=== PATIENT | male | born 1985 | race Caucasian/White ===

== ENCOUNTER → 2017-02-05 | Emergency (ER) | payer BC, OTHER ==
[~2017-02-05] VITALS: Ht 180.3 cm; Wt 99.8 kg
[~2017-02-05] MED LIST: CYCL10TA9 PO; HYDROcodone/APAP 5 MG/325 MG (LORTAB) TAB PO STA; ORPHENADRINE 60 MG/2 ML (NORFLEX) AMP IM STA; PRD20T PO; TRAM50TA2 PO; morphine INJ 10 MG/ML 1ML (SYR OR VIAL) IM STA
--- NOTE | 2017-02-05 16:11 | ED Back Pain ---
General Chief Complaint: Back Problems Stated Complaint: BACK PAIN Nursing Triage Note: PT STATES HE HAS HAD CHRONIC BACK PAIN SINCE HE WAS IN HIGH. STATES THIS AM HE WOKE UP AND IT WAS SEVERE. TOOK 800MG IBUPROFEN AT 0730, STATES IT USUALLY HELPS HIS PAIN BUT IT DID NOT TODAY AND HE DOES NOT TAKE ANYTHING OTHER THAN THAT. Nursing Sepsis Screen: No Definite Risk Source of Information: Patient, Spouse, Other (friend) Exam Limitations: No Limitations History of Present Illness Time Seen by Provider: 16:11 Initial Comments 31-year-old male patient presents to the emergency department complaints of mid to low back pain which is chronic in nature. States this has occurred since he was in [place]. Denies any known previous injury. Reports this a.m. he awoke with increased pain. States he had gotten in the shower to stretch out his back. When he got out to dry off he had severe sudden onset pain. Denies numbness, weakness, bowel incontinence, bladder incontinence, or numbness of the genitals. Take 800 mg ibuprofen at 1500. Location: Lumbar Spine, Paraspinous Muscles Timing/Duration: Other (chronic back pain, worse today) Severity: Severe Pain/Injury Location: Back Radiation: Other (denies radiation) Method of Injury: Unknown Modifying Factors: Improves With Immobilization, Worse With Movement Associated Symptoms: muscle spasms, No fever, No weakness, No numbness in legs/ feet, No tingling in legs/feet, No sensory/motor loss, No loss of bladder control, No loss of bowel control Allergies and Home Medications Allergies Coded Allergies: erythromycin base (Verified Allergy, Unknown, 02/05/17) Home Medications Cyclobenzaprine HCl 10 Mg Tablet, 10 MG PO Q8H PRN for SPASMS, #14 Ref 0 Prescribed by: GRAZYNA OKEEFE on 02/05/17 172 Prednisone 20 Mg Tab, 40 MG PO DAILY for 5 Days, #10 Ref 0 Prescribed by: GRAZYNA OKEEFE on 02/05/17 172 Tramadol HCl 50 Mg Tablet, 50 MG PO Q4H PRN for PAIN, #14 Ref 0 Prescribed by: GRAZYNA OKEEFE on 02/05/171722 Constitutional: No chills, No fever, No malaise Respiratory: no symptoms reported Cardiovascular: no symptoms reported Gastrointestinal: No abdominal pain, No constipation, No diarrhea, No nausea, No vomiting Genitourinary: No decreased output, No dysuria, No frequency, No hematuria, No pain Musculoskeletal: see HPI, back pain, No joint pain, No neck pain Skin: no symptoms reported Psychiatric/Neurological: Denies Headache, Denies Numbness, Denies Paresthesia , Denies Tingling, Denies Weakness All Other Systems Reviewed Negative Unless Noted: Yes (Negative excepted noted.) Past Drhkdwd-Bwgyau-Gvxhtb Hx Patient Social History Alcohol Use: Denies Use Recreational Drug Use: No Smoking Status: Never a Smoker Recent Foreign Travel: No Contact w/Someone Who Travel: No Recent Infectious Disease Expo: No Recent Hopitalizations: No Seasonal Allergies Seasonal Allergies: No Surgeries HX Surgeries: Yes Surgeries: Appendectomy, Gallbladder Respiratory Hx Respiratory Disorders: No Cardiovascular Hx Cardiac Disorders: No Neurological Hx Neurological Disorders: No Reproductive System Hx Reproductive Disorders: No Genitourinary Hx Genitourinary Disorders: No Gastrointestinal Hx Gastrointestinal Disorders: Yes Gastrointestinal Disorders: Gastroesophageal Reflux Musculoskeletal Hx Musculoskeletal Disorders: Yes Musculoskeletal Disorders: Chronic Back Pain Endocrine Hx Endocrine Disorders: No HEENT HX ENT Disorders: No Cancer Hx Cancer: No Psychosocial Hx Psychiatric Problems: No Integumentary HX Skin/Integumentary Disorder: No Blood Transfusions Hx Blood Disorders: No Reviewed Nursing Assessment Reviewed/Agree w Nursing PMH: Yes Family Medical History Significant Family History: No Pertinent Family Hx Physical Exam Vital Signs Vital Sign - Last 12Hours 02/05/17 15:55 Temp 98.1 Pulse 51 Resp 18 B/P (MAP) 140/96 Capillary Refill : Less Than 3 Seconds General Appearance: No Apparent Distress, WD/WN HEENT: PERRL/EOMI, Pharynx Normal Neck: Full Range of Motion, Normal Inspection, Non Tender, Supple Cardiovascular: Regular Rate, Rhythm, No Edema, No Murmur, Normal Peripheral Pulses Respiratory: Lungs Clear, Normal Breath Sounds, No Respiratory Distress Gastrointestinal: Normal Bowel Sounds, No Organomegaly, Non Tender, Soft, No Distended Back: Normal Inspection, Decreased Range of Motion, Muscle Spasm, Vertebral Tenderness (upper lumbar spine.) Extremity: Normal Capillary Refill, Normal Inspection, Non Tender, No Pedal Edema, Other (LLE) Neurologic/Psychiatric: Alert, Oriented x3, No Motor/Sensory Deficits, Normal Mood/Affect Skin: Normal Color, Warm/Dry Progress/Results/Core Measures Results/Orders My Orders Orders - GRAZYNA OKEEFE Lumbar Spine - 2-3 Views (02/05/17 16:21) Morphine Injection (Morphine Injection (02/05/17 16:21) Orphenadrine Injection (Norflex Injectio (02/05/17 16:21) Hydrocodone/Apap 5/325 Tablet (Lortab 5 (02/05/17 17:25) Vital Signs/I&O Vital Sign - Last 12Hours 02/05/17 15:55 Temp 98.1 Pulse 51 Resp 18 B/P (MAP) 140/96 Blood Pressure Mean: 111 Diagnostic Imaging Diagonstic Imaging: Xray Plain Films/CT/US/NM/MRI: other (lumbar spine) Comments FINDINGS: Alignment of lumbar spine appears normal. Vertebral body heights well- maintained. Disc spaces appear preserved. The facets appear normally aligned. There appear to be some mild facet hypertrophy at L4-L5 and L5-S1. IMPRESSION: 1. Mild lower lumbar facet hypertrophy. Alignment is normal. Vertebral body heights maintained. Disc spaces appear preserved. Dictated on workstation # [id number] Reviewed: Reviewed by Me (radiology report reviewed by me) Departure Communication Progress Notes Diagnostic findings discussed with the patient. Patient states pain is improved , but still rates pain at a 4/10. Requesting something else for pain. We'll give 1 dose of hydrocodone prior to discharge. Patient ambulated from the emergency department without difficulty. Impression Impression: Primary Impression: Back strain Qualified Codes: S39.012A - Strain of muscle, fascia and tendon of lower back , initial encounter Disposition: 01 HOME, SELF-CARE Condition: Improved Departure-Patient Inst. Decision time for Depature: 17:16 Referrals: NO,LOCAL PHYSICIAN (PCP) Primary Care Physician Patient Instructions: Muscle Strain (DC), Lumbar Muscle Strain (DC) Add. Discharge Instructions: All discharge instructions reviewed with patient and/or family. Voiced understanding. Medications as instructed. Ibuprofen 800 mg by mouth every 8 hours as needed for pain. Tylenol extra strength [id number] as directed for pain. Ice packs or heating pads as needed for pain. No lifting, pushing, pulling, twisting, bending, climbing 5-7 days, increase activity slowly as tolerated. Follow-up with your family practice provider of choice if no improvement in symptoms in 7-10 days. Return to the emergency department for worsened pain, numbness, weakness, and numbness of the genitalia, bowel incontinence, bladder incontinence, or any other concerns. Scripts Cyclobenzaprine HCl (Cyclobenzaprine HCl) 10 Mg Tablet 10 MG PO Q8H Y for SPASMS, #14 TAB 0 Refills Prov: GRAZYNA OKEEFE 02/05/17 Tramadol HCl (Tramadol HCl) 50 Mg Tablet 50 MG PO Q4H Y for PAIN, #14 TAB 0 Refills Prov: GRAZYNA OKEEFE 02/05/17 Prednisone (Prednisone) 20 Mg Tab 40 MG PO DAILY for 5 Days, #10 TAB 0 Refills Prov: GRAZYNA OKEEFE 02/05/17 Work/School Note: Local [employer] GRAZYNA OKEEFE Feb 05, 2017 16:11
--- NOTE | 2017-02-05 17:10 | Diagnostic Imaging Report ---
INDICATION: Back pain. FINDINGS: Alignment of lumbar spine appears normal. Vertebral body heights well-maintained. Disc spaces appear preserved. The facets appear normally aligned. There appear to be some mild facet hypertrophy at L4-L5 and L5-S1. IMPRESSION: 1. Mild lower lumbar facet hypertrophy. Alignment is normal. Vertebral body heights maintained. Disc spaces appear preserved. Dictated by: Dictated on workstation # [id number]
[2017-02-05 17:39] VITALS: BP 140/96
== END | disposition home or self-care (01) ==
LOC: ER 15:42
DX: S39.012A Strain of muscle, fascia and tendon of lower back, initial encounter (principal); X50.9XXA Other and unspecified overexertion or strenuous movements or postures, initial encounter; Y92.012 Bathroom of single-family (private) house as the place of occurrence of the external cause; Y93.E1 Activity, personal bathing and showering; Y99.8 Other external cause status
CPT/HCPCS: 72100; 96372; 99281

== ENCOUNTER 2018-04-14 16:41 | Emergency (ER) | payer SELFPAY ==
[~2018-04-14] VITALS: Ht 180.3 cm; Wt 97.5 kg
[~2018-04-14 16:41] MED LIST changes: -HYDROcodone/APAP 5 MG/325 MG (LORTAB) TAB PO STA; -ORPHENADRINE 60 MG/2 ML (NORFLEX) AMP IM STA; -morphine INJ 10 MG/ML 1ML (SYR OR VIAL) IM STA
--- NOTE | 2018-04-14 17:10 | ED Chest Pain ---
General Chief Complaint: Chest Pain Stated Complaint: CP/FACIAL TINGLING Source: patient, family Exam Limitations: no limitations History of Present Illness Date Seen by Provider: Apr 14, 2018 Time Seen by Provider: 17:05 Initial Comments to ER with reports of chest pain and facial tingling. This began when he was in the movie theater with his earlier today. His accompanies him to ER. He states that he began to feel weird during the movie then stood up and felt lightheaded, tingling in chest and abdomen, tingling in his face and fingertips and he began to feel very short of breath.he's had a couple of these episodes over the past few weeks with dizziness, states "I just can't think". His states that he referred to triangle as a [place] and seemed to have trouble getting his thoughts out. During these episodes he has the tingling in both hands and his chest. He was started on Concerta 3 months ago. Severity/Quality: moderate Location: central Activities at Onset: none Prior CP/Workup: no prior chest pain Associated Symptoms: denies symptoms Allergies and Home Medications Allergies Coded Allergies: erythromycin base (Verified Allergy, Unknown, 02/05/17) Home Medications Cyclobenzaprine HCl 10 Mg Tablet, 10 MG PO Q8H PRN for SPASMS Prescribed by: GRAZYNA OKEEFE on 02/05/17 172 Hydroxyzine HCl 25 Mg Tablet, 25 MG PO Q6H PRN for ANXIETY Prescribed by: SIENNA MAKI on 04/14/18 1740 Prednisone 20 Mg Tab, 40 MG PO DAILY Prescribed by: GRAZYNA OKEEFE on 02/05/17 172 Tramadol HCl 50 Mg Tablet, 50 MG PO Q4H PRN for PAIN Prescribed by: GRAZYNA OKEEFE on 02/05/17 172 Patient Home Medication List Home Medication List Reviewed: Yes Review of Systems Constitutional: see HPI EENTM: No Symptoms Reported Respiratory: See HPI; Denies Cough, Denies Orthopnea; Shortness of Air Cardiovascular: See HPI, Chest Pain Gastrointestinal: No Symptoms Reported Genitourinary: No Symptoms Reported Musculoskeletal: no symptoms reported Skin: no symptoms reported Psychiatric/Neurological: No Symptoms Reported Endocrine: No Symptoms Reported Past Elsvtpv-Hylpjr-Emynwc Hx Patient Social History Recent Hopitalizations: No Seasonal Allergies Seasonal Allergies: No Past Medical History Appendectomy, Gallbladder Reproductive Disorders: No Gastroesophageal Reflux Chronic Back Pain Family Medical History No Pertinent Family Hx Physical Exam Vital Signs Vital Signs - First Documented 04/14/18 17:14 Temp 98.2 Pulse 90 Resp 18 B/P (MAP) 146/92 (110) Pulse Ox 99 O2 Delivery Room Air Capillary Refill : General Appearance: No Apparent Distress, WD/WN, Anxious, Other (speech is appropriate, his responses to questions are appropriate, he is able to describe everything that happened but his responses are delayed and he does not make eye contact.) HEENT: PERRL/EOMI, TMs Normal Neck: Full Range of Motion, Normal Inspection Respiratory: Normal Breath Sounds, No Accessory Muscle Use, No Respiratory Distress Cardiovascular: Regular Rate, Rhythm, Normal Peripheral Pulses Gastrointestinal: Normal Bowel Sounds, Non Tender, Soft Extremity: Normal Capillary Refill, Normal Inspection Neurologic/Psychiatric: Alert, Oriented x3, No Motor/Sensory Deficits Skin: Normal Color, Warm/Dry Progress/Results/Core Measures Results/Orders Lab Results Laboratory Tests Test 04/14/18 17:00 Range/Units White Blood Count 9.0 4.3-11.0 10^3/uL Red Blood Count 4.81 4.35-5.85 10^6/uL Hemoglobin 14.3 13.3-17.7 G/DL Hematocrit 40 40-54 % Mean Corpuscular Volume 82 80-99 FL Mean Corpuscular Hemoglobin 30 25-34 PG Mean Corpuscular Hemoglobin Concent 36 32-36 G/DL Red Cell Distribution Width 12.7 10.0-14.5 % Platelet Count 309 130-400 10^3/uL Mean Platelet Volume 9.5 7.4-10.4 FL Neutrophils (%) (Auto) 65 42-75 % Lymphocytes (%) (Auto) 22 12-44 % Monocytes (%) (Auto) 10 0-12 % Eosinophils (%) (Auto) 2 0-10 % Basophils (%) (Auto) 0 0-10 % Neutrophils # (Auto) 5.9 1.8-7.8 X 10^3 Lymphocytes # (Auto) 2.0 1.0-4.0 X 10^3 Monocytes # (Auto) 0.9 0.0-1.0 X 10^3 Eosinophils # (Auto) 0.2 0.0-0.3 10^3/uL Basophils # (Auto) 0.0 0.0-0.1 10^3/uL Sodium Level 140 135-145 MMOL/L Potassium Level 3.5 L 3.6-5.0 MMOL/L Chloride Level 108 H 98-107 MMOL/L Carbon Dioxide Level 21 21-32 MMOL/L Anion Gap 11 5-14 MMOL/L Blood Urea Nitrogen 14 7-18 MG/DL Creatinine 0.88 0.60-1.30 MG/DL Estimat Glomerular Filtration Rate > 60 BUN/Creatinine Ratio 16 Glucose Level 121 H 70-105 MG/DL Calcium Level 9.6 8.5-10.1 MG/DL Total Bilirubin 0.6 0.1-1.0 MG/DL Aspartate Amino Transf (AST/SGOT) 19 5-34 U/L Alanine Aminotransferase (ALT/SGPT) 28 0-55 U/L Alkaline Phosphatase 74 40-136 U/L Troponin I < 0.30 <0.30 NG/ML Total Protein 7.2 6.4-8.2 GM/DL Albumin 4.4 3.2-4.5 GM/DL Thyroid Stimulating Hormone (TSH) 1.89 0.35-4.94 UIU/ML Free Thyroxine 1.09 0.70-1.48 NG/DL My Orders Orders - SIENNA MAKI APRN Alprazolam Tablet (Xanax Tablet) (04/14/18 17:15) Cbc With Automated Diff (04/14/18 17:04) Comprehensive Metabolic Panel (04/14/18 17:04) Thyroid Stimulating Hormone (04/14/18 17:04) Free T4 (Free Thyroxine) (04/14/18 17:04) Ekg Tracing (04/14/18 17:04) Chest Pa/Lat (2 View) (04/14/18 17:04) Ct Head Wo (04/14/18 17:04) Troponin I (04/14/18 17:13) Medications Given in ED Current Medications Medications Dose Ordered Sig/Terry Route Start Time Stop Time Status Last Admin Dose Admin Alprazolam 0.25 mg ONCE ONCE PO 04/14/18 17:15 18 17:16 DC 04/14/18 17:34 0.25 MG Vital Signs/I&O 04/14/1818 17:14 17:14 Temp 98.2 Pulse 90 Resp 18 B/P (MAP) 146/92 (110) Pulse Ox 99 O2 Delivery Room Air Progress Progress Note : Progress Note 1811-tingling is goneand he was feeling better but he feels a recurrence ofshortness of breath again.His keeps his eyes closed when talking. Diagnostic Imaging Diagonstic Imaging: CT Comments NAME: TUSHAR CLINE [facility] REC#: [id number] PT STATUS: REG ER : 1985 PHYSICIAN: SIENNA MAKI APRN ADMIT DATE: 04/14/18/ER Draft Date of Exam:04/14/18 CT HEAD WO PROCEDURE: CT head without contrast. TECHNIQUE: Multiple contiguous axial images were obtained through the brain without the use of intravenous contrast. INDICATION: Lightheadedness and dizziness. CT HEAD: Multiple contiguous axial CT images of the head were obtained. FINDINGS: Ventricles and sulci are within normal limits for size. There is no intracranial hemorrhage identified. There is no abnormal mass effect or shift of midline structures. IMPRESSION: Unremarkable CT of the head. Dictated on workstation # [id number] Dict: 04/14/18 1727 Trans: 04/14/18 1734 [id number] Interpreted by: OLINDA DURAN MD Electronically signed by: Departure Impression Primary Impression: Chest pain Additional Impression: Anxiety Disposition: 01 HOME, SELF-CARE Condition: Stable Departure-Patient Inst. Decision time for Depature: 17:38 Referrals: NO,LOCAL PHYSICIAN (PCP/Family) Primary Care Physician Patient Instructions: Chest Pain (DC) Add. Discharge Instructions: 1. Your symptoms do strongly suggest anxiety. He should follow-up with your primary care provider within one week for further evaluation of symptoms. You may also discussed with him stopping the Concerta and switching to a different stimulant medication, as it would be possible that this is contributing to the anxiety. All discharge instructions reviewed with patient and/or family. Voiced understanding. Scripts Hydroxyzine HCl (Hydroxyzine HCl) 25 Mg Tablet 25 MG PO Q6H PRN for ANXIETY, #20 TAB Prov: SIENNA MAKI APRN 04/14/18 SIENNA MAKI APRN Apr 14, 2018 17:10
[2018-04-14] MEDS ORDERED: ALPRAZolam 0.25 MG (XANAX) TAB PO ONE (17:15)
[2018-04-14 17:16] LABS: BASOPHILS % (AUTO) 0 % (0-10); EOSINOPHILS # (AUTO) 0.2 10^3/uL (0.0-0.3); EOSINOPHILS % (AUTO) 2 % (0-10); HEMATOCRIT 40 % (40-54); HEMOGLOBIN 14.3 G/DL (13.3-17.7); LYMPHOCYTES % (AUTO) 22 % (12-44); MEAN CORPUSCULAR HEMOGLOBIN 30 PG (25-34); MEAN CORPUSCULAR HGB CONC 36 G/DL (32-36); MEAN CORPUSCULAR VOLUME 82 FL (80-99); MEAN PLATELET VOLUME 9.5 FL (7.4-10.4); MONOCYTES # (AUTO) 0.9 X 10^3 (0.0-1.0); MONOCYTES % (AUTO) 10 % (0-12); NEUTROPHILS # (AUTO) 5.9 X 10^3 (1.8-7.8); NEUTROPHILS % (AUTO) 65 % (42-75); PLATELET COUNT 309 10^3/uL (130-400); RED BLOOD COUNT 4.81 10^6/uL (4.35-5.85); RED CELL DISTRIBUTION WIDTH 12.7 % (10.0-14.5)
[2018-04-14 17:33] LABS: ALANINE AMINOTRANSFERASE 28 U/L (0-55); ALBUMIN 4.4 GM/DL (3.2-4.5); ALKALINE PHOSPHATASE 74 U/L (40-136); BILIRUBIN,TOTAL 0.6 MG/DL (0.1-1.0); BUN/CREATININE RATIO 16; CALCIUM 9.6 MG/DL (8.5-10.1); CARBON DIOXIDE 21 MMOL/L (21-32); CHLORIDE 108 MMOL/L (98-107); CREATININE SERUM 0.88 MG/DL (0.60-1.30); GFR ESTIMATED > 60; GLUCOSE 121 MG/DL (70-105); POTASSIUM 3.5 MMOL/L (3.6-5.0); SODIUM 140 MMOL/L (135-145); TOTAL PROTEIN 7.2 GM/DL (6.4-8.2)
--- NOTE | 2018-04-14 17:35 | Diagnostic Imaging Report ---
PROCEDURE: CT head without contrast. TECHNIQUE: Multiple contiguous axial images were obtained through the brain without the use of intravenous contrast. INDICATION: Lightheadedness and dizziness. CT HEAD: Multiple contiguous axial CT images of the head were obtained. FINDINGS: Ventricles and sulci are within normal limits for size. There is no intracranial hemorrhage identified. There is no abnormal mass effect or shift of midline structures. IMPRESSION: Unremarkable CT of the head. Dictated by: Dictated on workstation # [id number]
[2018-04-14] MEDS ORDERED: HYDR-700 PO (17:40)
[2018-04-14 17:54] LABS: FREE T4 (FREE THYROXINE) 1.09 NG/DL (0.70-1.48)
--- NOTE | 2018-04-14 18:00 | Diagnostic Imaging Report ---
INDICATION: Dyspnea and dizziness with paresthesia. PA and lateral views of the chest are obtained. COMPARISON: No previous study is available for comparison at this time. FINDINGS: Heart size and pulmonary vasculature are within normal limits, and the lungs are clear, bilaterally. IMPRESSION: Unremarkable chest. Dictated by: Dictated on workstation # [id number]
[2018-04-14] MEDS ORDERED: LORazepam INJ 2 MG/ML (ATIVAN) VIAL IVP ONE (18:15)
[2018-04-14 18:58] VITALS: BP 142/87
== END 2018-04-14 18:58 | disposition home or self-care (01) ==
LOC: EDUNIT# 16:41 → ER 16:42
DX: F41.9 Anxiety disorder, unspecified (principal); R07.9 Chest pain, unspecified; K21.9 Gastro-esophageal reflux disease without esophagitis; Z90.49 Acquired absence of other specified parts of digestive tract; Z79.52 Long term (current) use of systemic steroids; Z88.1 Allergy status to other antibiotic agents
CPT/HCPCS: 36415; 70450; 71046; 80053; 84439; 84443; 84484; 85025; 93005; 96374

== ENCOUNTER 2018-04-17 15:50 | Emergency (ER) | payer SELFPAY ==
[~2018-04-17] VITALS: Ht 180.3 cm; Wt 97.5 kg
[~2018-04-17 15:50] MED LIST changes: +HYDR-700 PO
[2018-04-17] MEDS ORDERED: IOHEXOL 350 MG/ML 100 ML (OMNIPAQUE 350) VIAL IV ONE (17:00)
[2018-04-17] MEDS ORDERED: NS 100 ML (IVPB) BAG IV ONE (17:00)
[2018-04-17 17:06] LABS: BASOPHILS # (AUTO) 0.1 10^3/uL (0.0-0.1); BASOPHILS % (AUTO) 1 % (0-10); EOSINOPHILS # (AUTO) 0.3 10^3/uL (0.0-0.3); EOSINOPHILS % (AUTO) 4 % (0-10); HEMATOCRIT 39 % (40-54); LYMPHOCYTES # (AUTO) 1.9 X 10^3 (1.0-4.0); LYMPHOCYTES % (AUTO) 24 % (12-44); MEAN CORPUSCULAR HEMOGLOBIN 30 PG (25-34); MEAN CORPUSCULAR HGB CONC 36 G/DL (32-36); MEAN CORPUSCULAR VOLUME 83 FL (80-99); MEAN PLATELET VOLUME 9.5 FL (7.4-10.4); MONOCYTES # (AUTO) 0.8 X 10^3 (0.0-1.0); MONOCYTES % (AUTO) 10 % (0-12); NEUTROPHILS # (AUTO) 4.9 X 10^3 (1.8-7.8); NEUTROPHILS % (AUTO) 61 % (42-75); PLATELET COUNT 316 10^3/uL (130-400); RED BLOOD COUNT 4.66 10^6/uL (4.35-5.85); RED CELL DISTRIBUTION WIDTH 12.8 % (10.0-14.5)
[2018-04-17 17:27] LABS: BUN/CREATININE RATIO 17; CALCIUM 9.2 MG/DL (8.5-10.1); CARBON DIOXIDE 25 MMOL/L (21-32); CHLORIDE 111 MMOL/L (98-107); CREATININE SERUM 0.81 MG/DL (0.60-1.30); GFR ESTIMATED > 60; GLUCOSE 118 MG/DL (70-105); MAGNESIUM 2.2 MG/DL (1.8-2.4); POTASSIUM 3.8 MMOL/L (3.6-5.0); SODIUM 143 MMOL/L (135-145)
--- NOTE | 2018-04-17 17:31 | Diagnostic Imaging Report ---
PROCEDURE: CT neck soft tissue with contrast. TECHNIQUE: Multiple contiguous axial images were obtained through the neck after the administration of contrast. INDICATION: Right facial droop There is no evidence of neck mass or pathologic adenopathy. The airway is patent, throughout the neck. There is no evidence of parotid or submandibular salivary gland abnormality. Thyroid gland has a normal appearance. Great vessels in the neck appear patent. There is no evidence of acute osseous abnormality. IMPRESSION: Unremarkable CT scan of the neck. Dictated by: Dictated on workstation # [id number]
--- NOTE | 2018-04-17 17:42 | Diagnostic Imaging Report ---
PROCEDURE: CT head with and without contrast. TECHNIQUE: Multiple contiguous axial images were obtained through the brain before and after the administration of intravenous contrast. INDICATION: Headache, disequilibrium, and facial droop. COMPARISON: Comparison is made to study of 04/14/2018. FINDINGS: Ventricles and sulci are within normal limits for size. There is no evidence of hemorrhage. There is no abnormal mass effect or shift of midline structures. No abnormal contrast enhancement is identified. 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 There is leftward deviation and spurring of the nasal septum. IMPRESSION: No acute abnormality or significant adverse change is seen. Dictated by: Dictated on workstation # [id number]
[2018-04-17 17:52] LABS: TSH (THYROID ANALYZER) 1.76 UIU/ML (0.35-4.94)
--- NOTE | 2018-04-17 18:32 | ED Neurological Problem ---
General Chief Complaint: General Problems/Pain Stated Complaint: FACIAL DROOP, MUSCLE SPASMS Nursing Triage Note: TO ROOM WITH PATIENT REPORTS THAT IS R SIDE OF FACE IS DRAWING UP APPEARS TO BE HOLDING R SIDE OF MOUTH OPEN. LEFT ROOM FOR SHORT WHILE AND WHEN BACK TO ROOM MOUTH NORMAL. PATIENT REPORTS THAT THIS COMES AND GOES. Nursing Sepsis Screen: No Definite Risk Source: patient Exam Limitations: no limitations History of Present Illness Date Seen by Provider: Apr 17, 2018 Time Seen by Provider: 16:15 Initial Comments This 32-year-old gentleman presents to the emergency room with primary complaint of right sided facial and neck spasms. The spasms seem to have started today. However, he has had other unusual symptoms in recent days including mild headache, dizziness, some difficulty with word finding, numbness in his extremities and face, and chest discomfort. He also complains of a sensation of fullness in the neck. He was seen on April 14 for these symptoms as well. Workup was unremarkable at that time and he was felt to likely be experiencing anxiety as a source of his symptoms. Symptoms were thought to possibly be related to Concerta. Patient last took Concerta on Monday. Today is Monday and he is still having symptoms. Patient denies feeling anxious. Allergies and Home Medications Allergies Coded Allergies: erythromycin base (Verified Allergy, Unknown, 02/05/17) Home Medications Cyclobenzaprine HCl 10 Mg Tablet, 10 MG PO Q8H PRN for SPASMS Prescribed by: GRAZYNA OKEEFE on 02/05/17 172 Hydroxyzine HCl 25 Mg Tablet, 25 MG PO Q6H PRN for ANXIETY Prescribed by: SIENNA MAKI on 04/14/18 1740 Prednisone 20 Mg Tab, 40 MG PO DAILY Prescribed by: GRAZYNA OKEEFE on 02/05/17 172 Tramadol HCl 50 Mg Tablet, 50 MG PO Q4H PRN for PAIN Prescribed by: GRAZYNA OKEEFE on 02/05/17 172 Patient Home Medication List Home Medication List Reviewed: Yes Review of Systems Constitutional: no symptoms reported Eyes: No Symptoms Reported Ears, Nose, Mouth, Throat: see HPI Respiratory: see HPI Cardiovascular: see HPI Gastrointestinal: no symptoms reported Genitourinary: no symptoms reported Musculoskeletal: see HPI Skin: no symptoms reported Psychiatric/Neurological: See HPI Endocrine: No Symptoms Reported Hematologic/Lymphatic: No Symptoms Reported Past [id number]-Minfny Hx Past Med/Social Hx: Reviewed and Corrections made Patient Social History Alcohol Use: Denies Use Recreational Drug Use: No Smoking Status: Never a Smoker Recent Foreign Travel: No Contact w/Someone Who Travel: No Recent Infectious Disease Expo: No Recent Hopitalizations: No Seasonal Allergies Seasonal Allergies: No Past Medical History Surgeries: Yes Appendectomy, Gallbladder Respiratory: No Cardiac: No Neurological: No Reproductive Disorders: No Genitourinary: No Gastrointestinal: Yes Gastroesophageal Reflux Musculoskeletal: Yes Chronic Back Pain Endocrine: No HEENT: No Cancer: No Psychosocial: Yes ADD/ADHD Integumentary: No Blood Disorders: No Family Medical History Reviewed Nursing Family Hx No Pertinent Family Hx Physical Exam Vital Signs Vital Signs - First Documented 04/17/18 04/17/18 15:58 18:52 Temp 96.8 Pulse 83 Resp 18 B/P (MAP) 153/96 (115) Pulse Ox 98 O2 Delivery Room Air Capillary Refill : Less Than 3 Seconds General Appearance: WD/WN, no apparent distress HEENT: PERRL/EOMI, normal ENT inspection, pharynx normal Neck: non-tender, full range of motion, supple, normal inspection; No lymphadenopathy (R), No lymphadenopathy (L) Respiratory: chest non-tender, lungs clear, normal breath sounds, no respiratory distress, no accessory muscle use Cardiovascular: normal peripheral pulses, regular rate, rhythm, no edema, no gallop, no murmur Gastrointestinal: normal bowel sounds, non tender, soft Extremities: normal inspection, no pedal edema 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, no motor/sensory deficits, alert, normal mood/affect, oriented x 3, other (Right neck and facial spasming) Crainal Nerves: normal hearing, normal speech, PERRL Coordination/Gait: normal finger to nose (Normal heel to mchugh) Motor/Sensory: no motor deficit, no sensory deficit Skin: normal color, warm/dry Progress/Results/Core Measures Results/Orders Lab Results Laboratory Tests Test 04/17/18 16:53 Range/Units White Blood Count 8.0 4.3-11.0 10^3/uL Red Blood Count 4.66 4.35-5.85 10^6/uL Hemoglobin 14.0 13.3-17.7 G/DL Hematocrit 39 L 40-54 % Mean Corpuscular Volume 83 80-99 FL Mean Corpuscular Hemoglobin 30 25-34 PG Mean Corpuscular Hemoglobin Concent 36 32-36 G/DL Red Cell Distribution Width 12.8 10.0-14.5 % Platelet Count 316 130-400 10^3/uL Mean Platelet Volume 9.5 7.4-10.4 FL Neutrophils (%) (Auto) 61 42-75 % Lymphocytes (%) (Auto) 24 12-44 % Monocytes (%) (Auto) 10 0-12 % Eosinophils (%) (Auto) 4 0-10 % Basophils (%) (Auto) 1 0-10 % Neutrophils # (Auto) 4.9 1.8-7.8 X 10^3 Lymphocytes # (Auto) 1.9 1.0-4.0 X 10^3 Monocytes # (Auto) 0.8 0.0-1.0 X 10^3 Eosinophils # (Auto) 0.3 0.0-0.3 10^3/uL Basophils # (Auto) 0.1 0.0-0.1 10^3/uL Sodium Level 143 135-145 MMOL/L Potassium Level 3.8 3.6-5.0 MMOL/L Chloride Level 111 H 98-107 MMOL/L Carbon Dioxide Level 25 21-32 MMOL/L Anion Gap 7 5-14 MMOL/L Blood Urea Nitrogen 14 7-18 MG/DL Creatinine 0.81 0.60-1.30 MG/DL Estimat Glomerular Filtration Rate > 60 BUN/Creatinine Ratio 17 Glucose Level 118 H 70-105 MG/DL Calcium Level 9.2 8.5-10.1 MG/DL Magnesium Level 2.2 1.8-2.4 MG/DL TSH [place] Testing 1.76 0.35-4.94 UIU/ML My Orders Orders - AYE GARBER MD Basic Metabolic Panel (04/17/18 16:24) Cbc With Automated Diff (04/17/18 16:24) Magnesium (04/17/18 16:24) Thyroid Analyzer (04/17/18 16:24) Saline Lock/Iv-Start (04/17/18 16:24) Ct Head W Wo (04/17/18 16:46) Ct Neck (Soft Tissue) W (04/17/18 16:46) Iohexol Injection (Omnipaque 350 Mg/Ml 1 (04/17/18 17:00) Ns (Ivpb) (Sodium Chloride 0.9% Ivpb Bag (04/17/18 17:00) Medications Given in ED Current Medications Medications Dose Ordered Sig/Terry Route Start Time Stop Time Status Last Admin Dose Admin Iohexol 75 ml ONCE ONCE IV 04/17/18 17:00 04/17/18 17:01 DC 04/17/18 17:07 75 ML Sodium Chloride 100 ml ONCE ONCE IV 04/17/18 17:00 04/17/18 17:01 DC 04/17/18 17:07 100 ML Vital Signs/I&O 04/17/18 04/17/18 15:58 18:52 Temp 96.8 Pulse 83 69 Resp 18 18 B/P (MAP) 153/96 (115) 148/98 Pulse Ox 98 98 O2 Delivery Room Air Blood Pressure Mean: 115 Progress Progress Note : Progress Note Labs Were reviewed and revealed no abnormalities. I discussed further imaging with Dr. Mccollum. We opted to perform CT of the head with contrast as well a CT of the head with and without contrast to rule out any mass effect or other problems that could be contributing to the spasms. It is noteworthy that the patient spasms seemed to resolve when he was distracted with other tasks such as the thorough neurologic exam. Diagnostic Imaging Diagonstic Imaging: CT Plain Films/CT/US/NM/MRI: head Comments CT head viewed by me and report reviewed. See report below: NAME: TUSHAR CLINE [facility] REC#: [id number] PT STATUS: REG ER : 1985 PHYSICIAN: AYE GARBER MD ADMIT DATE: 04/17/18/ER Draft Date of Exam:04/17/18 CT HEAD W WO PROCEDURE: CT head with and without contrast. TECHNIQUE: Multiple contiguous axial images were obtained through the brain before and after the administration of intravenous contrast. INDICATION: Headache, disequilibrium, and facial droop. COMPARISON: Comparison is made to study of 04/14/2018. FINDINGS: Ventricles and sulci are within normal limits for size. There is no evidence of hemorrhage. There is no abnormal mass effect or shift of midline structures. No abnormal contrast enhancement is identified. 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 There is leftward deviation and spurring of the nasal septum. IMPRESSION: No acute abnormality or significant adverse change is seen. Dictated on workstation # [id number] Dict: 04/17/18 1725 Trans: 04/17/18 1741 [id number] Interpreted by: OLINDA DURAN MD Diagonstic Imaging: CT Plain Films/CT/US/NM/MRI: other (Soft tissues neck with contrast) Comments CT soft tissues neck with contrast viewed by me and report reviewed. See report below: NAME: TUSHAR CLINE [facility] REC#: [id number] PT STATUS: REG ER : 1985 PHYSICIAN: AYE GARBER MD ADMIT DATE: 04/17/18/ER Draft Date of Exam:04/17/18 CT NECK (SOFT TISSUE) W PROCEDURE: CT neck soft tissue with contrast. TECHNIQUE: Multiple contiguous axial images were obtained through the neck after the administration of contrast. INDICATION: Right facial droop There is no evidence of neck mass or pathologic adenopathy. The airway is patent, throughout the neck. There is no evidence of parotid or submandibular salivary gland abnormality. Thyroid gland has a normal appearance. Great vessels in the neck appear patent. There is no evidence of acute osseous abnormality. IMPRESSION: Unremarkable CT scan of the neck. Dictated on workstation # [id number] Dict: 04/17/18 1723 Trans: 04/17/18 1730 [facility] [id number] Interpreted by: OLINDA DURAN MD Departure Impression Primary Impression: Facial spasm Disposition: 01 HOME, SELF-CARE Condition: Improved Departure-Patient Inst. Decision time for Depature: 18:30 Referrals: NO,LOCAL PHYSICIAN (PCP/Family) Primary Care Physician Patient Instructions: Muscle Spasms (DC) Add. Discharge Instructions: Stay well-hydrated, eat a well-balanced diet, and avoid excessive stimulants such as caffeine. Return to care if symptoms are worsening. Follow-up with your primary care provider soon as possible. Consider discussing referral to a neurologist. Avoid unnecessary stress and get plenty of rest at night. All discharge instructions reviewed with patient and/or family. Voiced understanding. Copy Copies To 1: KAMALJIT MOSLEY JOSHUA T MD Apr 17, 2018 18:32
[2018-04-17 18:52] VITALS: BP 148/98
== END 2018-04-17 18:55 | disposition home or self-care (01) ==
LOC: EDUNIT# 15:50 → ER 15:52
DX: G51.3 Clonic hemifacial spasm (principal); F90.9 Attention-deficit hyperactivity disorder, unspecified type; K21.9 Gastro-esophageal reflux disease without esophagitis; Z90.49 Acquired absence of other specified parts of digestive tract; Z88.1 Allergy status to other antibiotic agents; Z79.52 Long term (current) use of systemic steroids
CPT/HCPCS: 36415; 70470; 70491; 80048; 83735; 84443; 85025